=== PATIENT | female | born 1990 | race Caucasian/White ===

== ENCOUNTER 2018-08-23 11:24 | Emergency (ER) | payer OTHER ==
[~2018-08-23] VITALS: Ht 160 cm; Wt 57.6 kg
[2018-08-23] MEDS ORDERED: CELEXA40 MG PO (12:13)
[2018-08-23] MEDS ORDERED: ONDANSETRON HCL4 M2 PO (12:57)
[2018-08-23 13:08] VITALS: BP 113/72
== END 2018-08-23 13:08 | disposition home or self-care (01) ==
LOC: ER 11:24
DX: O9A.211 Injury, poisoning and certain other consequences of external causes complicating pregnancy, first trimester (principal); Z3A.09 9 weeks gestation of pregnancy; G24.01 Drug induced subacute dyskinesia; T45.0X5A Adverse effect of antiallergic and antiemetic drugs, initial encounter; Y92.89 Other specified places as the place of occurrence of the external cause; Z88.8 Allergy status to other drugs, medicaments and biological substances